=== PATIENT | female | born 1995 | race African-American/Black ===

== ENCOUNTER 2016-08-12 14:25 | Inpatient (IN) | payer OTHER ==
[~2016-08-12] VITALS: Ht 149.9 cm; Wt 40.5 kg
[~2016-08-12 14:25] MED LIST: BACTRIM,SEPT1 TABLET PO; DIVALPROEX SOD250 MG PO; DIVALPROEX SOD500 M1 PO; ESCITALOPRAM OX20 MG PO; FLUOXETINE HCL20 MG PO; HYDROXYZINE PAM50 MG PO; NO HOME MEDS; PRAZOSIN HCL1 MG PO; PYRIDIUM100 MG PO; TRAZODONE HCL50 MG PO
[2016-08-12 16:28] LABS: EOSINOPHIL (%) 0.6 % (0-5); EOSINOPHIL COUNT 0.1 K/uL (0-0.3); HEMATOCRIT 38.1 % (36.0-46.0); IMMATURE GRANULOCYTE (%) 0.6 % (0.0-0.7); IMMATURE GRANULOCYTE COUNT 0.1 K/uL; INSTRUMENT ABS NEUTROPHIL CT 7.2 K/uL; LYMPHOCYTE COUNT 2.2 K/uL (1.0-2.8); MCH 28.1 PG (29.0-34.0); MCV 87.8 FL (83-99); MONOCYTE (%) 7.5 % (3-12); MONOCYTE COUNT 0.8 K/uL (0-0.8); NEUTROPHIL (%) 69.5 % (45-76); NEUTROPHIL COUNT 7.2 K/uL (1.8-6.4); PLATELET COUNT 235 K/uL (156-360); RBC DIS.WIDTH-SD 42.1 % (39-53); RED BLOOD COUNT 4.34 M/uL (3.80-5.20); WHITE BLOOD COUNT 10.4 K/uL (4.1-10.2)
[2016-08-12 16:36] LABS: CHLORIDE 108 mEq/L (99-109); POTASSIUM 4.5 mEq/L (3.7-5.4); SODIUM 138 mEq/L (136-147)
[2016-08-12 16:38] LABS: GLUCOSE 92 mg/dL (70-99)
[2016-08-12 16:39] LABS: ANION GAP 9 MEQ/L (2-14)
[2016-08-12 16:41] LABS: SERUM ETHYL ALCOHOL < 10 mg/dL
[2016-08-12 16:42] LABS: GFR ESTIMATE (CALCULATED) > 59 mL/min/
[2016-08-12 16:43] LABS: UREA NITROGEN (BUN) 9 mg/dL (9-23)
[2016-08-12 16:53] LABS: QUANTITATIVE HCG < 4.0 MIU/ML
[2016-08-12 17:15] LABS: ADD MIUA? YES; BILIRUBIN NEGATIVE; BLOOD NEGATIVE; COLOR YELLOW ((YELLOW)); GLUCOSE (STRIP) NEGATIVE; KETONES NEGATIVE; LEUKOCYTES LARGE; NITRITE NEGATIVE; PROTEIN (STRIP) 30; SPECIFIC GRAVITY 1.019 (1.000-1.030); UROBILINOGEN 0.2 MG/DL (0.2-1.0)
[2016-08-12 17:27] LABS: BACTERIA RARE /HPF; EPITHELIAL CELLS 3+ /HPF; MUCUS 1+ /LPF; RED BLOOD CELLS 0-5 /HPF (0-5); RENAL EPITHELIAL CELLS RARE /HPF
[2016-08-12 17:38] LABS: AMPHETAMINE NEGATIVE (500 ng/mL); BARBITURATES NEGATIVE (200 ng/mL); BENZODIAZEPINES NEGATIVE (150 ng/mL); COCAINE NEGATIVE (150 ng/mL); INTERNAL CONTROLS VALID? YES; METHADONE NEGATIVE (200 ng/mL); METHAMPHETAMINE NEGATIVE (500 ng/mL); OPIATES (MORPHINE) NEGATIVE (100 ng/mL); OXYCODONE NEGATIVE (100 ng/mL); PHENCYCLIDINE NEGATIVE (25 ng/mL); PROPOXYPHENE NEGATIVE (300 ng/mL); THC CANNABINOIDS PRESUMPTIVE POSITIVE (50 ng/mL); TRICYCLIC ANTIDEPRESSANTS NEGATIVE (300 ng/mL)
[2016-08-12 17:39] LABS: ADD MEDTOX COMMENT Y
[2016-08-12 22:59] VITALS: BP 106/63
[2016-08-12 23:37] VITALS: BP 106/63
[2016-08-13 07:52] VITALS: BP 100/46
[2016-08-13 15:22] VITALS: BP 95/55
[2016-08-14 07:17] VITALS: BP 121/55
[2016-08-14 15:23] VITALS: BP 105/56
[2016-08-15 07:27] VITALS: BP 105/53
[2016-08-15 16:02] VITALS: BP 108/58
[2016-08-16 07:51] VITALS: BP 98/49
[2016-08-16 15:22] VITALS: BP 107/49
[2016-08-16 17:05] VITALS: BP 148/92
[2016-08-17 07:38] VITALS: BP 91/47
[2016-08-17] MEDS ORDERED: OXCARBAZEPINE150 MG PO (09:51)
== END 2016-08-17 11:32 | disposition home or self-care (01) | DRG 885 ==
LOC: EME 14:25 → 1WEST 17:20 → EDOF 17:20 → 1WEST 22:56
PROVIDERS: Emergency Medicine
DX: F32.0 Major depressive disorder, single episode, mild (principal); R45.850 Homicidal ideations; N39.0 Urinary tract infection, site not specified; F17.200 Nicotine dependence, unspecified, uncomplicated; F41.9 Anxiety disorder, unspecified; Z81.8 Family history of other mental and behavioral disorders
CPT/HCPCS: 80048; 81003; 84702; 84999; 85025; 90839; 97150 GO; 97165 GO; 99281; 99284; G0480

== ENCOUNTER 2016-10-19 12:22 | Emergency (ER) | payer OTHER ==
[~2016-10-19] VITALS: Ht 149.9 cm; Wt 40.7 kg
[~2016-10-19 12:22] MED LIST changes: +OXCARBAZEPINE150 MG PO
[2016-10-19] MEDS ORDERED: NAPROSYN500 MG PO (15:25)
[2016-10-19] MEDS ORDERED: TRAMADOL HCL50 MG PO (15:25)
[2016-10-19 15:38] VITALS: BP 104/62
== END 2016-10-19 15:39 | disposition home or self-care (01) ==
LOC: EME 12:22
PROC: 3E0T3BZ Introduction of Anesthetic Agent into Peripheral Nerves and Plexi, Percutaneous Approach (ICD-10-PCS; principal; 2016-10-19)
DX: S02.5XXA Fracture of tooth (traumatic), initial encounter for closed fracture (principal); F17.200 Nicotine dependence, unspecified, uncomplicated
CPT/HCPCS: 99281; 99284

== ENCOUNTER 2017-02-22 21:25 | Emergency (ER) | payer OTHER ==
[~2017-02-22] VITALS: Ht 149.9 cm; Wt 36.0 kg
[~2017-02-22 21:25] MED LIST changes: +NAPROSYN500 MG PO; +TRAMADOL HCL50 MG PO
[2017-02-22 21:58] LABS: HEMATOCRIT 39.2 % (36.0-46.0); HEMOGLOBIN 13.4 G/DL (11.9-15.5); MCH 28.9 PG (29.0-34.0); MCHC 34.2 G/DL (30.0-36.0); MCV 84.7 FL (83-99); PLATELET COUNT 272 K/uL (156-360); RBC DIS.WIDTH-CV 12.7 % (11.8-14.6); RBC DIS.WIDTH-SD 39.1 % (39-53); RED BLOOD COUNT 4.63 M/uL (3.80-5.20); WHITE BLOOD COUNT 6.7 K/uL (4.1-10.2)
[2017-02-22 22:08] LABS: ALBUMIN 4.7 g/dL (3.2-4.8)
[2017-02-22 22:09] LABS: CHLORIDE 107 mEq/L (99-109); POTASSIUM 3.6 mEq/L (3.7-5.4); SODIUM 139 mEq/L (136-147)
[2017-02-22 22:11] LABS: GLUCOSE 95 mg/dL (70-99); TOTAL PROTEIN 8.5 g/dL (6.4-8.3)
[2017-02-22 22:13] LABS: TOTAL BILIRUBIN 0.6 mg/dL (0.0-1.0)
[2017-02-22 22:14] LABS: ALKALINE PHOSPHATASE 68 IU/L (3-129)
[2017-02-22 22:15] LABS: CREATININE 0.8 mg/dL (0.6-1.3); GFR ESTIMATE (CALCULATED) > 59 mL/min/
[2017-02-22 22:16] LABS: AST (GOT) 18 IU/L (2-34); UREA NITROGEN (BUN) 7 mg/dL (9-23)
[2017-02-22 22:18] LABS: ALT (GPT) 10 IU/L (3-49); LIPASE 21 U/L (1.0-51.0)
[2017-02-22 22:24] LABS: QUANTITATIVE HCG < 4.0 MIU/ML
[2017-02-22 22:24] LABS: APPEARANCE CLEAR ((CLEAR)); BILIRUBIN NEGATIVE; BLOOD NEGATIVE; COLOR STRAW ((YELLOW)); GLUCOSE (STRIP) NEGATIVE; KETONES 5; LEUKOCYTES NEGATIVE; NITRITE NEGATIVE; PROTEIN (STRIP) NEGATIVE; SPECIFIC GRAVITY 1.004 (1.000-1.030); UCUL ADDED? NO; UROBILINOGEN 0.2 MG/DL (0.2-1.0)
[2017-02-22 23:22] VITALS: BP 102/64
== END 2017-02-22 23:23 | disposition home or self-care (01) ==
LOC: EME → EDBD 21:25 → EME 21:25
PROVIDERS: Emergency Medicine
DX: K52.9 Noninfective gastroenteritis and colitis, unspecified (principal); F17.200 Nicotine dependence, unspecified, uncomplicated
CPT/HCPCS: 80053; 81003; 83690; 84702; 85027; 99281; 99284; J2405; J7030

== ENCOUNTER 2017-05-19 00:57 | Emergency (ER) | payer OTHER ==
[~2017-05-19] VITALS: Ht 149.9 cm; Wt 42.6 kg
[2017-05-19 01:30] LABS: HEMATOCRIT 36.5 % (36.0-46.0); HEMOGLOBIN 12.1 G/DL (11.9-15.5); MCH 28.5 PG (29.0-34.0); MCHC 33.2 G/DL (30.0-36.0); MCV 85.9 FL (83-99); PLATELET COUNT 233 K/uL (156-360); RBC DIS.WIDTH-CV 12.5 % (11.8-14.6); RBC DIS.WIDTH-SD 39.4 % (39-53); RED BLOOD COUNT 4.25 M/uL (3.80-5.20)
[2017-05-19 01:39] LABS: ALBUMIN 4.6 g/dL (3.2-4.8); CHLORIDE 106 mEq/L (99-109); POTASSIUM 3.2 mEq/L (3.7-5.4); SODIUM 140 mEq/L (136-147)
[2017-05-19 01:42] LABS: GLUCOSE 106 mg/dL (70-99); TOTAL PROTEIN 7.9 g/dL (6.4-8.3)
[2017-05-19 01:44] LABS: D-DIMER ELISA < 150.00 ng/mLDDU (<230); TOTAL BILIRUBIN 0.5 mg/dL (0.0-1.0)
[2017-05-19 01:45] LABS: ALKALINE PHOSPHATASE 59 IU/L (3-129); CREATININE 0.8 mg/dL (0.6-1.3); GFR ESTIMATE (CALCULATED) > 59 mL/min/
[2017-05-19 01:46] LABS: UREA NITROGEN (BUN) 5 mg/dL (9-23)
[2017-05-19 01:47] LABS: AST (GOT) 14 IU/L (2-34)
[2017-05-19 01:48] LABS: AMPHETAMINE NEGATIVE (500 ng/mL); BARBITURATES NEGATIVE (200 ng/mL); BENZODIAZEPINES NEGATIVE (150 ng/mL); BUPRENORPHINE NEGATIVE (10 ng/mL); COCAINE NEGATIVE (150 ng/mL); METHADONE NEGATIVE (200 ng/mL); METHAMPHETAMINE NEGATIVE (500 ng/mL); OPIATES (MORPHINE) NEGATIVE (100 ng/mL); OXYCODONE NEGATIVE (100 ng/mL); PHENCYCLIDINE NEGATIVE (25 ng/mL); PROPOXYPHENE NEGATIVE (300 ng/mL); THC CANNABINOIDS PRESUMPTIVE POSITIVE (50 ng/mL); TRICYCLIC ANTIDEPRESSANTS NEGATIVE (300 ng/mL)
[2017-05-19 01:48] LABS: ALT (GPT) 7 IU/L (3-49)
[2017-05-19 01:51] LABS: TROP-I INTERPRETATION NEGATIVE; TROPONIN-I < 0.01 ng/mL (0.0-0.30)
[2017-05-19 01:54] LABS: QUANTITATIVE HCG < 4.0 MIU/ML
[2017-05-19 04:50] LABS: APPEARANCE SL.HAZY ((CLEAR)); BILIRUBIN NEGATIVE; BLOOD NEGATIVE; COLOR YELLOW ((YELLOW)); GLUCOSE (STRIP) NEGATIVE; KETONES NEGATIVE; LEUKOCYTES SMALL; NITRITE NEGATIVE; PROTEIN (STRIP) NEGATIVE; SPECIFIC GRAVITY 1.018 (1.000-1.030); UROBILINOGEN 0.2 MG/DL (0.2-1.0)
[2017-05-19 04:55] LABS: BACTERIA NONE SEEN /HPF; EPITHELIAL CELLS 2+ /HPF; MUCUS 2+ /LPF; UCUL ADDED? YES
[2017-05-19] MEDS ORDERED: BACTRIM,SEPT1 TABLET PO (05:19)
[2017-05-19 05:53] VITALS: BP 102/68
== END 2017-05-19 05:55 | disposition home or self-care (01) ==
LOC: EME 00:57
PROVIDERS: Emergency Medicine
DX: F12.10 Cannabis abuse, uncomplicated (principal); R30.0 Dysuria; R35.0 Frequency of micturition; R10.9 Unspecified abdominal pain; R00.2 Palpitations; Z63.4 Disappearance and death of family member; F17.200 Nicotine dependence, unspecified, uncomplicated
CPT/HCPCS: 80053; 81003; 84484; 84702; 84999; 85027; 85379; 87086; 93005; 99281; 99284; J7030

== ENCOUNTER 2017-06-05 21:31 | Emergency (ER) | payer OTHER ==
[~2017-06-05] VITALS: Ht 149.9 cm; Wt 41.8 kg
[2017-06-05 21:51] LABS: APPEARANCE CLOUDY ((CLEAR)); BILIRUBIN NEGATIVE; BLOOD SMALL; COLOR YELLOW ((YELLOW)); GLUCOSE (STRIP) NEGATIVE; KETONES NEGATIVE; LEUKOCYTES SMALL; NITRITE NEGATIVE; PROTEIN (STRIP) 30; SPECIFIC GRAVITY 1.014 (1.000-1.030); UROBILINOGEN 0.2 MG/DL (0.2-1.0)
[2017-06-05 22:14] LABS: EPITHELIAL CELLS 2+ /HPF; WHITE BLOOD CELLS 20-30 /HPF (0-5)
[2017-06-05 22:15] LABS: MUCUS TRACE /LPF
[2017-06-05 22:19] LABS: BACTERIA 2+ /HPF; UCUL ADDED? YES
[2017-06-05 22:22] LABS: HEMATOCRIT 37.9 % (36.0-46.0); HEMOGLOBIN 12.9 G/DL (11.9-15.5); MCH 28.9 PG (29.0-34.0); MCV 84.8 FL (83-99); PLATELET COUNT 236 K/uL (156-360); RBC DIS.WIDTH-CV 12.1 % (11.8-14.6); RBC DIS.WIDTH-SD 37.7 % (39-53); RED BLOOD COUNT 4.47 M/uL (3.80-5.20); WHITE BLOOD COUNT 6.4 K/uL (4.1-10.2)
[2017-06-05 23:11] LABS: ALBUMIN 4.6 G/DL (3.2-4.8); ALKALINE PHOSPHATASE 55 IU/L (3-129); ALT (GPT) 7 IU/L (3-49); AST (GOT) 15 IU/L (2-34); CHLORIDE 106 MEQ/L (99-109); CREATININE 0.7 MG/DL (0.6-1.3); GFR ESTIMATE (CALCULATED) > 59 mL/min/; GLUCOSE 111 mg/dL (70-99); LIPASE 17 U/L (1.0-51.0); POTASSIUM 3.5 MEQ/L (3.7-5.4); SODIUM 140 MEQ/L (136-147); TOTAL BILIRUBIN 0.6 MG/DL (0.0-1.0); TOTAL PROTEIN 7.6 G/DL (6.4-8.3); UREA NITROGEN (BUN) 8 mg/dL (9-23)
[2017-06-05 23:52] LABS: QUANTITATIVE HCG < 4.0 MIU/ML
[2017-06-06] MEDS ORDERED: MOTRIN400 MG PO (00:46)
[2017-06-06] MEDS ORDERED: CEFTIN250 MG PO (00:46)
[2017-06-06] MEDS ORDERED: ZOFRAN4 MG PO (00:46)
[2017-06-06 01:15] VITALS: BP 113/79
== END 2017-06-06 01:21 | disposition home or self-care (01) ==
LOC: EME → EDBD 21:31 → EME 06-06 01:21
PROVIDERS: Emergency Medicine
DX: N30.00 Acute cystitis without hematuria (principal); N30.10 Interstitial cystitis (chronic) without hematuria; Z87.440 Personal history of urinary (tract) infections; F17.200 Nicotine dependence, unspecified, uncomplicated
CPT/HCPCS: 74177; 80053; 81003; 81025; 83690; 84702; 85027; 87040; 87086; 93005; 99281; 99285; J0696; J1885; J7030

== ENCOUNTER 2017-07-01 14:34 | Emergency (ER) | payer OTHER ==
[~2017-07-01] VITALS: Ht 124.5 cm; Wt 40.1 kg
[~2017-07-01 14:34] MED LIST changes: +CEFTIN250 MG PO; +MOTRIN400 MG PO; +ZOFRAN4 MG PO
[2017-07-01 16:13] LABS: APPEARANCE CLEAR ((CLEAR)); BILIRUBIN NEGATIVE; BLOOD NEGATIVE; COLOR YELLOW ((YELLOW)); GLUCOSE (STRIP) NEGATIVE; KETONES 5; LEUKOCYTES NEGATIVE; NITRITE NEGATIVE; PROTEIN (STRIP) NEGATIVE; SPECIFIC GRAVITY 1.024 (1.000-1.030); UCUL ADDED? NO; UROBILINOGEN 0.2 MG/DL (0.2-1.0)
[2017-07-01] MEDS ORDERED: DIFLUCAN150 MG PO (16:36)
[2017-07-01 17:12] LABS: SOURCE SWAB
[2017-07-01 18:27] VITALS: BP 115/74
[2017-07-01 20:56] LABS: CANDIDA DNA PROBE POSITIVE; GARDNERELLA DNA PROBE POSITIVE; TRICHOMONAS DNA PROBE NEGATIVE
== END 2017-07-01 18:27 | disposition home or self-care (01) ==
LOC: EME 14:34
PROVIDERS: Physician Assistant
DX: B37.3 Candidiasis of vulva and vagina (principal); F17.200 Nicotine dependence, unspecified, uncomplicated; Z87.19 Personal history of other diseases of the digestive system; Z86.19 Personal history of other infectious and parasitic diseases; Z91.018 Allergy to other foods
CPT/HCPCS: 81003; 81025; 87210; 87480; 87491; 87510; 87591; 87660; 99281; 99284

== ENCOUNTER 2017-07-31 10:45 | Emergency (ER) | payer OTHER ==
[~2017-07-31] VITALS: Ht 149.9 cm; Wt 41.0 kg
[~2017-07-31 10:45] MED LIST changes: +DIFLUCAN150 MG PO
[2017-07-31 11:15] LABS: APPEARANCE SL.HAZY ((CLEAR)); BILIRUBIN NEGATIVE; BLOOD NEGATIVE; COLOR YELLOW ((YELLOW)); GLUCOSE (STRIP) NEGATIVE; KETONES NEGATIVE; LEUKOCYTES NEGATIVE; NITRITE NEGATIVE; PROTEIN (STRIP) NEGATIVE; SPECIFIC GRAVITY 1.025 (1.000-1.030); UROBILINOGEN 0.2 MG/DL (0.2-1.0)
[2017-07-31 11:17] LABS: BACTERIA RARE /HPF; EPITHELIAL CELLS 2+ /HPF; MUCUS 1+ /LPF; RED BLOOD CELLS 0-5 /HPF (0-5); WHITE BLOOD CELLS 0-5 /HPF (0-5)
[2017-07-31 12:44] LABS: HEMATOCRIT 35.1 % (36.0-46.0); HEMOGLOBIN 11.5 G/DL (11.9-15.5); MCH 28.5 PG (29.0-34.0); MCHC 32.8 G/DL (30.0-36.0); MCV 86.9 FL (83-99); PLATELET COUNT 195 K/uL (156-360); RBC DIS.WIDTH-CV 12.6 % (11.8-14.6); RBC DIS.WIDTH-SD 40.7 % (39-53); RED BLOOD COUNT 4.04 M/uL (3.80-5.20); WHITE BLOOD COUNT 6.4 K/uL (4.1-10.2)
[2017-07-31 12:54] LABS: CHLORIDE 108 mEq/L (99-109); SODIUM 139 mEq/L (136-147)
[2017-07-31 12:56] LABS: GLUCOSE 90 mg/dL (70-99)
[2017-07-31 13:00] LABS: CREATININE 0.7 mg/dL (0.6-1.3); GFR ESTIMATE (CALCULATED) > 59 mL/min/
[2017-07-31 13:01] LABS: UREA NITROGEN (BUN) 9 mg/dL (9-23)
[2017-07-31 15:04] VITALS: BP 124/84
== END 2017-07-31 15:04 | disposition home or self-care (01) ==
LOC: EME 10:45
PROVIDERS: Emergency Medicine
DX: R00.2 Palpitations (principal); I49.9 Cardiac arrhythmia, unspecified; F17.200 Nicotine dependence, unspecified, uncomplicated
CPT/HCPCS: 80048; 81003; 81025; 85027; 93005; 99281; 99284

== ENCOUNTER 2017-09-29 19:14 | Emergency (ER) | payer OTHER ==
[~2017-09-29] VITALS: Ht 152.4 cm; Wt 40.9 kg
[2017-09-29 20:25] LABS: HEMATOCRIT 36.6 % (36.0-46.0); MCH 28.1 PG (29.0-34.0); MCHC 32.8 G/DL (30.0-36.0); MCV 85.7 FL (83-99); PLATELET COUNT 216 K/uL (156-360); RBC DIS.WIDTH-CV 11.9 % (11.8-14.6); RBC DIS.WIDTH-SD 37.3 % (39-53); RED BLOOD COUNT 4.27 M/uL (3.80-5.20)
[2017-09-29 20:29] LABS: CHLORIDE 107 mEq/L (99-109); POTASSIUM 4.2 mEq/L (3.7-5.4); SODIUM 140 mEq/L (136-147)
[2017-09-29 20:31] LABS: GLUCOSE 86 mg/dL (70-99)
[2017-09-29 20:34] LABS: SERUM ETHYL ALCOHOL < 10 mg/dL
[2017-09-29 20:35] LABS: CREATININE 0.8 mg/dL (0.6-1.3); GFR ESTIMATE (CALCULATED) > 59 mL/min/
[2017-09-29 20:37] LABS: UREA NITROGEN (BUN) 7 mg/dL (9-23)
[2017-09-29 20:38] LABS: SALICYLATE < 5.0 MG/DL (15-30)
[2017-09-29 20:39] LABS: ACETAMINOPHEN (TYLENOL) < 10 mcg/mL (10-30)
[2017-09-29 21:08] LABS: AMPHETAMINE NEGATIVE (500 ng/mL); BARBITURATES NEGATIVE (200 ng/mL); BENZODIAZEPINES NEGATIVE (150 ng/mL); BUPRENORPHINE NEGATIVE (10 ng/mL); COCAINE NEGATIVE (150 ng/mL); METHADONE NEGATIVE (200 ng/mL); METHAMPHETAMINE NEGATIVE (500 ng/mL); OPIATES (MORPHINE) NEGATIVE (100 ng/mL); OXYCODONE NEGATIVE (100 ng/mL); PHENCYCLIDINE NEGATIVE (25 ng/mL); PROPOXYPHENE NEGATIVE (300 ng/mL); THC CANNABINOIDS NEGATIVE (50 ng/mL); TRICYCLIC ANTIDEPRESSANTS NEGATIVE (300 ng/mL)
[2017-09-29 23:18] VITALS: BP 117/71
== END 2017-09-29 23:19 | disposition home or self-care (01) ==
LOC: EME 19:14
PROVIDERS: Emergency Medicine
DX: F32.9 Major depressive disorder, single episode, unspecified (principal); F17.200 Nicotine dependence, unspecified, uncomplicated
CPT/HCPCS: 80048; 85027; 90837; 99281; 99285; G0480